=== PATIENT | male | born 1990 ===

== ENCOUNTER 2017-11-22 10:01 | Emergency (ER) | payer MEDICAID ==
[2017-11-22 10:24] VITALS: BMI 37.5
--- NOTE | 2017-11-22 11:14 | ED PDOC ---
HPI: CCC, URI, Sore Throat Time Seen by Provider: 11/22/17 10:28 Chief Complaint (Nursing): ENT Problem Chief Complaint (Provider): Day 4 of sore throat, fever History Per: Patient History/Exam Limitations: no limitations Onset/Duration Of Symptoms: Days Current Symptoms Are (Timing): Still Present Location Of Pain: Throat Sick Contacts (Context): None Associated Symptoms: Fever, Chills, Sore Throat. denies: Cough, Sputum, Neck Pain, Sinus Drainage, Myalgias, Nasal Congestion, Vomiting Additional Complaint(s): 27 yo male with no medical problems presents for evaluation of sore throat x 4 days. PT reports fever but has not taken temp at home. Pt did have fever on arrival to ER. PT can swallow liquids with pain. No cough. Pt did not take any medications for pain today. Past Medical History Reviewed: Historical Data, Nursing Documentation, Vital Signs Vital Signs: Last Vital Signs Temp 101.2 F H 11/22/17 10:22 Pulse 123 H 11/22/17 10:22 Resp 22 11/22/17 10:22 BP 136/87 11/22/17 10:22 Pulse Ox 100 11/22/17 11:15 - Medical History PMH: No Chronic Diseases - Surgical History Surgical History: No Surg Hx - Family History Family History: States: No Known Family Hx - Living Arrangements Living Arrangements: With Family - Social History Current smoker - smoking cessation education provided: No Alcohol: None Drugs: Denies - Home Medications Home Medications: Ambulatory Orders Medication Instructions Recorded Amoxicillin 800 mg PO BID #200 ml 11/22/17 - Allergies Allergies/Adverse Reactions: Allergies Allergy/AdvReac Type Severity Reaction Status Date / Time No Known Allergies Allergy Verified 11/22/17 11:07 Review of Systems ROS Statement: Except As Marked, All Systems Reviewed And Found Negative Constitutional: Positive for: Fever, Chills. Negative for: Weakness, Malaise ENT: Positive for: Throat Pain. Negative for: Ear Pain, Ear Discharge Cardiovascular: Negative for: Chest Pain Respiratory: Negative for: Cough, Shortness of Breath Physical Exam - Reviewed Nursing Documentation Reviewed: Yes Vital Signs Reviewed: Yes - Physical Exam Appears: Positive for: Well, Non-toxic, No Acute Distress Head Exam: Positive for: ATRAUMATIC, NORMAL INSPECTION, NORMOCEPHALIC Skin: Positive for: Normal Color, Warm, DRY Eye Exam: Positive for: Normal appearance ENT: Positive for: Pharynx Is, Pharyngeal Erythema, Tonsillar Exudate, Tonsillar Swelling, Other (Uvula midline). Negative for: Normal ENT Inspection Neck: Positive for: Normal, Painless ROM Cardiovascular/Chest: Positive for: Regular Rate, Rhythm Respiratory: Positive for: CNT, Normal Breath Sounds Gastrointestinal/Abdominal: Positive for: Normal Exam, Soft Back: Positive for: Normal Inspection Extremity: Positive for: Normal ROM Neurologic/Psych: Positive for: Alert, Oriented - ECG O2 Sat by Pulse Oximetry: 100 Medical Decision Making Medical Decision Making: Decadron IM for pain/tonsilar edema Motrin PO for fever. 1115 - Pending repeat vitals after motrin. Disposition - Clinical Impression Clinical Impression: Strep throat - Patient ED Disposition Is Patient to be Admitted: No Counseled Patient/Family Regarding: Diagnosis, Need For Followup, Rx Given - Disposition Disposition: Routine/Home Disposition Time: 12:24 Condition: STABLE Prescriptions: Amoxicillin 800 mg PO BID #200 ml Instructions: Sore Throat in Adults Forms: [facility] (Bulgarian)
[2017-11-22 14:01] VITALS: BP 146/90; PULSE 96; RESP 20; TEMP 99.3; O2SAT 100
== END 2017-11-22 14:00 | disposition home or self-care (01) ==
LOC: H.ER 10:01
DX: J02.0 Streptococcal pharyngitis (principal)
CPT/HCPCS: 96372; 99284; J1100